=== PATIENT | female | born 1960 | race Caucasian/White ===

== ENCOUNTER → 2016-04-29 | Outpatient (CLI) | payer BC | END | disposition home or self-care (01) | LOC: PCVCIMAG 15:38 | PROVIDERS: ATTEND Internal Medicine Cardiovascular Disease | DX: R94.31 Abnormal electrocardiogram [ECG] [EKG] (principal); J44.9 Chronic obstructive pulmonary disease, unspecified; R07.9 Chest pain, unspecified; F43.9 Reaction to severe stress, unspecified; Z72.0 Tobacco use; Z82.49 Family history of ischemic heart disease and other diseases of the circulatory system | CPT/HCPCS: 93005; 93325; 93351 ==

== ENCOUNTER → 2018-10-07 | Outpatient (CLI) | payer OTHER ==
--- NOTE | 2018-10-07 13:50 | PCVCIMAG ---
APPROVED REPORT Study performed: 10/07/2018 13:51:47 EXAM: Comprehensive 2D, Doppler, and color-flow Echocardiogram Patient Location: Echo lab Room #: 3Status: routine BSA: 1.68 HR: 66 bpm Rhythm: NSR Other Information Study Quality: Adequate Risk Factors: Cardiac Risk Factors: Hyperlipidemia, Smoking Indications COPD CAD Cardiomyopathy 2D Dimensions IVSd: 9.52 (7-11mm)LVOT Diam: 20.00 (18-24mm) LVDd: 46.43 mm PWd: 9.74 (7-11mm)Ascending Ao: 30.57 (22-36mm) LVDs: 33.94 (25-40mm) Left Atrium: 35.06 (27-40mm) Aortic Root: 30.22 mm LV Single Plane 4CH: 59.85 % LV Single Plane 2CH: 51.90 % Biplane EF: 55.5 % Volumes Left Atrial Volume (Systole) Single Plane 4CH: 32.10 mLSingle Plane 2CH: 48.06 mL LA ESV Index: 25.00 mL/m2 Aortic Valve AoV Peak Quinten.: 1.29 m/s AO Peak Gr.: 6.68 mmHgLVOT Max P.88 mmHg LVOT Max V: 0.99 m/s RADHA Vmax: 2.43 cm2 Mitral Valve E/A Ratio: 0.6 MV Decel. Time: 204.61 ms MV E Max Quinten.: 0.45 m/s MV A Quinten.: 0.77 m/s IVRT: 72.66 ms TDI E/Lateral E': 5.63E/Medial E': 5.63 Medial E' Quinten.: 0.08 m/s Lateral E' Quinten.: 0.08 m/s Pulmonary Valve PV Peak Quinten.: 1.07 m/sPV Peak Gr.: 4.57 mmHg OK End Vmax: 1.09 m/s Pulmonary Vein P Vein S: 0.62 m/sP Vein A: 0.53 m/s P Vein D: 0.46 m/sP Vein A Dur.: 83.0 msec P Vein S/D Ratio: 1.35 Tricuspid Valve TR Peak Quinten.: 2.34 m/sRAP Estimate: 7.00 mmHg TR Peak Gr.: 21.90 mmHg PA Pressure: 29.00 mmHg Left Ventricle The left ventricle is normal size. There is normal LV segmental wall motion. There is normal left ventricular wall thickness. Left ventricular systolic function is normal. The left ventricular ejection fraction is within the normal range. LVEF is 55-60%. Mild diastolic dysfunction is present (impaired relaxation pattern). Right Ventricle The right ventricle is normal size. The right ventricular systolic function is normal. Atria The left atrium size is normal. The right atrium size is normal. Aortic Valve The aortic valve is normal in structure. No aortic regurgitation is present. There is no aortic valvular stenosis. Mitral Valve The mitral valve is normal in structure. Trace mitral regurgitation. No evidence of mitral valve stenosis. Tricuspid Valve The tricuspid valve is normal in structure. Mild tricuspid regurgitation. Pulmonary artery pressure is 29 mmHg. Pulmonic Valve The pulmonary valve is normal in structure. Mild pulmonic regurgitation. Great Vessels The aortic root is normal in size. IVC is normal in size and collapses >50% with inspiration. Pericardium There is no pericardial effusion. <Conclusion> The left ventricle is normal size. There is normal left ventricular wall thickness. Left ventricular systolic function is normal. Mild diastolic dysfunction is present (impaired relaxation pattern). The right ventricle is normal size. The left atrium size is normal. The aortic valve is normal in structure. Trace mitral regurgitation. Mild tricuspid regurgitation. Pulmonary artery pressure is 29 mmHg.
== END | disposition home or self-care (01) ==
LOC: PCVCIMAG 12:46
PROVIDERS: ATTEND Internal Medicine Cardiovascular Disease
DX: I08.8 Other rheumatic multiple valve diseases (principal); I25.119 Atherosclerotic heart disease of native coronary artery with unspecified angina pectoris; J44.9 Chronic obstructive pulmonary disease, unspecified; F17.200 Nicotine dependence, unspecified, uncomplicated; F43.9 Reaction to severe stress, unspecified; Z82.49 Family history of ischemic heart disease and other diseases of the circulatory system
CPT/HCPCS: 93306